=== PATIENT | male | born 1960 | race Caucasian/White ===

== ENCOUNTER 2021-12-11 13:48 | Outpatient (CLI) | payer OTHER, SELFPAY | END 2021-12-11 13:49 | disposition home or self-care (01) | LOC: INJ CL 13:49 | PROVIDERS: Visit Provider Family Medicine | DX: M17.12 Unilateral primary osteoarthritis, left knee (principal); M25.562 Pain in left knee | CPT/HCPCS: 64454 ==

== ENCOUNTER 2025-02-22 19:44 | Outpatient (CLI) | payer MEDICARE, OTHER, SELFPAY | END 2025-02-22 19:45 | disposition home or self-care (01) | LOC: SLEEP 19:46 | PROVIDERS: Visit Provider Internal Medicine | DX: G47.33 Obstructive sleep apnea (adult) (pediatric) (principal) | CPT/HCPCS: 95811 ==